=== PATIENT | male | born 1950 | race Caucasian/White ===

== ENCOUNTER 2024-08-12 12:05 | Outpatient (CLI) | payer MEDICARE, SELFPAY ==
[2024-08-15 06:10] LABS: HSV 1 Subtype by PCR Not Detected; HSV 2 Subtype by PCR Not Detected; Herpes Simplex Subtype Source Vesicle
== END 2024-08-12 12:06 | disposition home or self-care (01) ==
PROVIDERS: Visit Provider Nurse Practitioner
DX: K13.79 Other lesions of oral mucosa (principal)
CPT/HCPCS: 87529